=== PATIENT | female | born 1955 | race Caucasian/White ===

== ENCOUNTER 2020-03-27 09:46 | Emergency (ER) | payer SELFPAY ==
--- NOTE | 2020-03-27 09:51 | DI.RAD.S_ITS ---
PROCEDURE: XR CHEST 1V INDICATIONS: Chest pain TECHNIQUE: One view of the chest was acquired. COMPARISON: None. FINDINGS: Surgical changes and devices: None. Lungs and pleura: Lungs are clear. No pleural effusions or pneumothorax. Mediastinum: Mediastinal contours appear normal. Heart size is normal. Bones and chest wall: No suspicious bony lesions. Overlying soft tissues appear unremarkable. IMPRESSION: No acute cardiopulmonary disease process. Dictated by: Salima To MD, PhD on 03/27/2020 at 10:09 Approved by: Salima To MD, PhD on 03/27/2020 at 10:10
[2020-03-27 09:53] VITALS: BP 148/75; PULSE 85; O2SAT 99
[2020-03-27 09:56] VITALS: BP 148/75; PULSE 84; RESP 18; TEMP 36.9; O2SAT 98; BMI 23.3
[2020-03-27 10:00] VITALS: BP 131/69; PULSE 81; O2SAT 98
[2020-03-27 10:30] VITALS: BP 138/94; PULSE 80
[2020-03-27 10:32] LABS: Add Manual Diff / Slide Review NO; Basophils Absolute Auto 0 /uL (0-100); Eosinophils Absolute Auto 100 /uL (0-450); Eosinophils Percent Auto 1.6 % (2-4); Hemoglobin 15.3 g/dL (12.0-16.0); Lymphocytes Absolute Auto 1600 /uL (1100-4500); Lymphocytes Percent Auto 36.4 % (25-40); Mean Corpuscular HGB Conc 33.9 % (30-36); Mean Corpuscular Hemoglobin 31.3 PG (26-34); Mean Corpuscular Volume 92.3 fL (80-100); Monocytes Absolute Auto 500 /uL (0-900); Monocytes Percent Auto 11.3 % (3-14); Neutrophils Absolute Auto 2200 /uL (1500-7000); Neutrophils Percent Auto 49.7 % (50-75); Platelet Count 244 X10^3/uL (150-400); Red Blood Cell Count 4.88 X10^6/uL (4.0-5.2); Red Cell Distribution Width 13.6 % (11.6-14.8); White Blood Cell Count 4.3 X10^3/uL (4.5-11.0)
--- NOTE | 2020-03-27 10:35 | ED_ITS ---
HPI - Chest Pain General Chief Complaint: Chest Pain Stated Complaint: chest pain, dizziness, started yesterday morning Time Seen by Provider: 03/27/20 09:50 Source: patient Mode of arrival: Ambulatory Limitations: no limitations History of Present Illness HPI narrative: Patient is a 64-year-old female here for evaluation of left-sided chest pain that she states radiates the inside of her left upper arm. States t he symptoms started yesterday morning sometimes after she woke up. She described it as a sharp pain. Worse with taking a big deep breath and with palpating the left side of her chest. She thought that maybe it was just her breast that was hurting her yesterday. She states that it did hurt all day yesterday. She went to bed without last night and she stated that if it was still hurting in the morning she would come to the emergency department. She did wake up this morning with the discomfort. Again felt like it did yesterday. Did not tried anything for the symptoms prior to arrival. Related Data Home Medications Medication Instructions Recorded Confirmed multivitamin,[id number] 1 tab PO BID tab 09/26/17 09/26/17 Allergies Allergy/AdvReac Type Severity Reaction Status Date / Time No Known Drug Allergies Allergy Unverified 09/26/17 14:35 Review of Systems Constitutional Constitutional: Denies fever(s) and Denies headache(s) ENT Ears, Nose, Mouth, and Throat: Denies headache(s) Cardiovascular Cardiovascular: Reports chest pain, Denies dyspnea and Denies orthopnea Respiratory Respiratory: Denies cough, Reports pain on inspiration and Denies dyspnea Gastrointestinal Gastrointestinal: Denies abdominal pain, Denies nausea and Denies vomiting Genitourinary Genitourinary: Denies dysuria Genitourinary: Denies dysuria Musculoskeletal Musculoskeletal: Denies arthralgias and Denies myalgias Integumentary/Breasts Skin/Breast: Denies rash Neurologic Neurologic: Denies behavioral changes and Denies headache(s) Psychiatric Psychiatric: Denies behavioral changes Hematologic/Lymphatic Hematologic/Lymphatic: Denies easy bleeding and Denies easy bruising Allergic/Immunologic Allergic/Immunologic: Denies urticaria Patient History Medical History Hyperlipemia (~2008) Social History (Reviewed 03/27/20 @ 15:25 by LUCILA Torres Smoking Status: Never smoker Smoking Status: Never smoker alcohol intake frequency: 0-2 drinks per day Substance Use Type: does not use Exam Initial Vital Signs Initial Vital Signs: Vital Signs Pulse Rate 85 03/27/20 09:53 Blood Pressure 148/75 H 03/27/20 09:53 Pulse Oximetry 99 03/27/20 09:53 Const General: cooperative, comfortable and well developed Limitations: mental status not altered HENMT Head: normal to inspection and normocephalic Chest Chest: tenderness (Left anterior chest wall) Resp Effort & Inspection: normal respiratory effort Auscultation: clear to auscultation bilaterally Cardio Rate: regular rate Rhythm: regular rhythm Skin Lesions: no lesions Rashes: no rashes Neuro General: patient alert, patient awake and patient oriented x3 Cognition: normal cognition Speech: speech normal Sensory Exam: no sensory deficits noted Extrem General: normal to inspection and capillary refill normal Psych Appearance: grossly normal and well kempt Course Orders Ordered: ED Orders 03/27/20 09:51 XR chest 1V Stat EKG-12 Lead Stat 03/27/20 10:15 Complete Blood Count AUTO DIFF Stat Comprehensive Metabolic Panel Stat Lipase Stat NT-proBNP (BNP-Adult 18+) Stat Partial Thromboplastin Time Stat Prothrombin Time INR Stat Troponin & CK Cardiac Panel Stat Vital Signs Vital signs: Vital Signs - 8 hr 03/27/20 09:53 03/27/20 09:56 03/27/20 10:00 Temperature 98.4 F Pulse Rate 85 84 81 Respiratory Rate 18 Blood Pressure 148/75 H 148/75 H 131/69 Pulse Oximetry 99 98 98 03/27/20 10:30 03/27/20 11:00 03/27/20 11:30 Temperature Pulse Rate 80 68 80 Respiratory Rate 47 H 32 H Blood Pressure 138/94 H 133/66 147/87 H Pulse Oximetry 95 97 MDM - Chest Pain Lab Data Attestation: I reviewed the patient's lab results. Result diagrams: 03/27/20 10:15 03/27/20 10:15 Labs: Lab Results 03/27/20 03/27/20 03/27/20 Range/Units 10:15 10:15 10:15 WBC 4.3 L (4.5-11.0) X10^3/uL RBC 4.88 (4.0-5.2) X10^6/uL Hgb 15.3 (12.0-16.0) g/dL Hct 45.0 (36-46) % MCV 92.3 (80-100) fL MCH 31.3 (26-34) PG MCHC 33.9 (30-36) % RDW 13.6 (11.6-14.8) % Plt Count 244 (150-400) X10^3/uL Neut % (Auto) 49.7 L (50-75) % Lymph % (Auto) 36.4 (25-40) % [place] % (Auto) 11.3 (3-14) % Eos % (Auto) 1.6 L (2-4) % Baso % (Auto) 1.0 (0-2) % Neut # (Auto) 2200 (8865-4254) /uL Lymph # (Auto) 1600 (8177-7352) /uL [place] # (Auto) 500 (0-900) /uL Eos # (Auto) 100 (0-450) /uL Baso # (Auto) 0 (0-100) /uL PT 13.6 H (10.1-12.7) SECONDS INR 1.2 (0.9-1.3) APTT 32 (26.4-36.2) SECONDS Sodium 139 (137-145) mmol/L Potassium 4.2 (3.4-5.1) mmol/L Chloride 104 (98-107) mmol/L Carbon Dioxide 28 (22-32) mmol/L BUN 17 (7-17) mg/dL Creatinine 0.71 (0.52-1.04) mg/dL Estimated GFR > 60.0 (>60) mL/min BUN/Creatinine Ratio 23.9 H (6-22) Glucose 90 (80-110) mg/dL Calcium 9.4 (8.4-10.2) mg/dL Total Bilirubin 0.5 (0.2-1.3) mg/dL AST 34 (14-36) IU/L ALT 24 (<35) IU/L Alkaline Phosphatase 75 (38-126) U/L Total Creatine Kinase 39 (30-135) U/L CK-MB (CK-2) TNP CK-MB (CK-2) Rel Index TNP Troponin I < 0.012 (0.01-0.034) ng/mL NT-Pro-B Natriuret Pep 73 (<125) pg/mL Total Protein 7.3 (6.3-8.2) g/dL Albumin 4.4 (3.5-5.0) g/dL Globulin 2.9 (1.7-4.1) g/dL Albumin/Globulin Ratio 1.5 (1.0-2.8) Lipase 111 (23-300) U/L Imaging Data Chest x-ray: Radiologist's Impression: [address] 98 221XRay ReportSigned Patient: Yovana Geller JMR#: [id number]: 8Acct:[id number]/Sex: 64 / FDate of Service: 03/27/20Loc: EDAccession Number: [id number] Procedure: XR chest 1V Ordering Provider: Raul Farias D.O. PROCEDURE: XR CHEST 1V INDICATIONS: Chest pain TECHNIQUE: One view of the chest was acquired. COMPARISON: None. FINDINGS: Surgical changes and devices: None. Lungs and pleura: Lungs are clear. No pleural effusions or pneumothorax. Mediastinum: Mediastinal contours appear normal. Heart size is normal. Bones and chest wall: No suspicious bony lesions. Overlying soft tissues appear unremarkable. IMPRESSION: No acute cardiopulmonary disease process. Dictated by: Salima To MD, PhD on 03/27/2020 at 10:09 Approved by: Salima To MD, PhD on 03/27/2020 at 10:10 ECG Data Attestation: I personally reviewed and interpreted this ECG as follows: Prior ECG tracings: not available for review Interpretation: Sinus rhythm Ventricular rate is 73 Normal axis Normal QRS Normal QTC No ST T wave changes MDM Narrative Medical decision making narrative: Patient is nontoxic appearing. She does have reproducible left-sided chest wall discomfort. She stated that this pain that was produced with palpation was the pain that she was having last night, yesterday and also had brought her to the emergency department today. She has had constant symptoms yesterday. Her troponin is negative. EKG is unremarkable. She has no skin rashes over the area that would make me think of zoster. She denies any fevers. Chest x-ray is unremarkable. Informed her that she does have a rash over the next couple days that she needs to return to the emergency department. She was also given information so that she could establish a primary doctor in the area. She is given return precautions. She expressed understanding and agreement. Discharge Plan Departure Patient Disposition: Home Clinical Impression: Atypical chest pain Instructions: DI for Atypical Chest Pain Activity Restrictions/Additional Instructions: I do recommend you contact the health resource is coordinator here at the [facility] at [phone] to help you establish a primary provider. Return to the emergency department for any new or worsening symptoms Prescriptions: No Action multivitamin,[id number] [Complete Multivitamin] tablet 1 tab PO BID RF: 0 Referrals: Miscellaneous,Doctor, MD [Primary Care Provider] -
[2020-03-27 10:36] LABS: INR 1.2 (0.9-1.3); Prothrombin Time 13.6 SECONDS (10.1-12.7)
[2020-03-27 10:39] LABS: PTT Partial Thromboplastin Tim 32 SECONDS (26.4-36.2)
[2020-03-27 10:40] LABS: Alanine Aminotransferase 24 IU/L (<35); Albumin 4.4 g/dL (3.5-5.0); Albumin Globulin Ratio 1.5 (1.0-2.8); Alkaline Phosphatase 75 U/L (38-126); Aspartate Aminotransferase 34 IU/L (14-36); BUN Creatinine Ratio 23.9 (6-22); Bilirubin Total 0.5 mg/dL (0.2-1.3); Blood Urea Nitrogen 17 mg/dL (7-17); Calcium 9.4 mg/dL (8.4-10.2); Carbon Dioxide 28 mmol/L (22-32); Chloride 104 mmol/L (98-107); Creatine Kinase 39 U/L (30-135); Estimated Glomerular Filt Rate > 60.0 mL/min (>60); Globulin 2.9 g/dL (1.7-4.1); Glucose 90 mg/dL (80-110); HEMOLYSIS < 15 (0-50); Lipase 111 U/L (23-300); Potassium 4.2 mmol/L (3.4-5.1); Sodium 139 mmol/L (137-145); Total Protein 7.3 g/dL (6.3-8.2)
[2020-03-27 10:53] LABS: NT-proBNP (BNP-Adult 18+) 73 pg/mL (<125); Troponin I < 0.012 ng/mL (0.01-0.034)
[2020-03-27 11:00] VITALS: BP 133/66; PULSE 68; RESP 47; O2SAT 95
[2020-03-27 11:30] VITALS: BP 147/87; PULSE 80; RESP 32; O2SAT 97
== END 2020-03-27 11:42 | disposition home or self-care (01) ==
PROVIDERS: Emergency Provider Emergency Medicine
DX: R07.89 Other chest pain (principal); M79.622 Pain in left upper arm
CPT/HCPCS: 36415; 71045; 80053; 82550; 83690; 83880; 84484; 85025; 85610; 85730; 93005; 93010; 99283; 99284